=== PATIENT | male | born 1960 | race African-American/Black ===

== ENCOUNTER 2017-07-05 11:22 | Emergency (ER) | payer MEDICAID ==
[~2017-07-05] VITALS: Ht 180.3 cm; Wt 83.5 kg
[~2017-07-05 11:22] MED LIST: ATEN50TA
[2017-07-05 11:43] LABS: Urine RBC None Seen /hpf (0 - 3)
[2017-07-05 12:22] LABS: Urine Color Yellow (Yellow); Urine Glucose Normal (Normal)
[2017-07-05 12:23] LABS: Urine Bilirubin Negative (Negative); Urine Blood Negative /uL (Negative); Urine Ketone Negative (Negative); Urine Nitrite Negative (Negative); Urine Urobilinogen Normal (Negative)
[2017-07-05 12:23] LABS: Basophils # (auto) 0.1 uL; Basophils % (auto) 0.6 % (0.0-2.0); Eosinophils # (auto) 0.3 uL; Eosinophils % (auto) 3.3 % (0.0-7.0); Hematocrit 39.6 % (41.0-53.0); Hemoglobin 13.6 g/dL (13.5-17.5); Lymphocytes # (auto) 1.6 uL; Lymphocytes % (auto) 18.6 % (10.0-50.0); Mean Corpuscular Hemoglobin 33.3 pg (28.0-32.0); Mean Corpuscular Hgb Conc. 34.2 g/dL (32.0-36.0); Mean Corpuscular Volume 97.3 fL (80.0-100.0); Mean Platelet Volume 8.3 fL (6.9-10.8); Monocytes # (auto) 0.8 uL; Monocytes % (auto) 9.5 % (0.0-12.0); Neutrophils # (auto) 5.9 uL; Nucleated Red Blood Cells % 0.1 %; Platelet Count (auto) 347 10^3/uL (140-450); Red Cell Distribution Width 13.6 % (11.8-14.3); White Blood Cell 8.7 10^3/uL (4.4-10.8)
[2017-07-05 12:24] LABS: Urine Squamous Epithelial Cell FEW /hpf (<5)
[2017-07-05 12:25] LABS: Urine Mucus FEW (None Seen)
[2017-07-05 12:37] LABS: INR 0.93 (0.9-1.15); Partial Thromboplastin Time 25.3 sec (22.64-33.71); Prothrombin Time 10.1 sec (9.37-12.3)
[2017-07-05 12:43] LABS: Albumin 3.4 g/dL (3.4-5.0); Alkaline Phosphatase 79 U/L (45-117); Anion Gap 8 (5-15); Aspartate Aminotransferase 18 U/L (15-37); Bilirubin, Total 0.4 mg/dL (0.2-1.0); Blood Urea Nitrogen 14 mg/dL (7-18); Calcium 8.3 mg/dL (8.5-10.1); Carbon Dioxide 22 mmol/L (21-32); Chloride 111 mmol/L (98-107); GFR African American 82 mL/min; GFR Non-African American 68 mL/min; Glucose 104 mg/dL (74-106); Magnesium 2.2 mg/dL (1.6-2.6); Potassium 4.1 mmol/L (3.5-5.1); Sodium 141 mmol/L (136-145); Total Protein 6.9 g/dL (6.4-8.2)
[2017-07-05 12:50] LABS: B-Type Natriuretic Peptide 31.91 pg/mL (0-100)
[2017-07-05 15:42] VITALS: BP 173/98
== END 2017-07-05 15:44 | disposition home or self-care (01) ==
LOC: ER 11:22
DX: R42 Dizziness and giddiness (principal); I10 Essential (primary) hypertension; F17.210 Nicotine dependence, cigarettes, uncomplicated; Z79.899 Other long term (current) drug therapy
CPT/HCPCS: 36415; 70450; 71020; 80053; 81001; 82962; 83735; 83880; 84484; 85025; 85610; 85730; 93005

== ENCOUNTER 2021-04-17 10:25 | Emergency (ER) | payer MEDICAID ==
[~2021-04-17] VITALS: Ht 180.3 cm; Wt 81.6 kg
[2021-04-17 11:02] VITALS: BP 155/111
== END 2021-04-17 12:12 | disposition home or self-care (01) ==
LOC: ER 10:25
DX: H61.22 Impacted cerumen, left ear (principal); I10 Essential (primary) hypertension; I25.2 Old myocardial infarction; F17.210 Nicotine dependence, cigarettes, uncomplicated; Z98.890 Other specified postprocedural states
CPT/HCPCS: 69209

== ENCOUNTER 2021-08-19 08:28 | Emergency (ER) | payer MEDICAID ==
[~2021-08-19] VITALS: Ht 180.3 cm; Wt 86.2 kg
[2021-08-19 08:34] VITALS: BP 227/139
[2021-08-19] MEDS ORDERED: cloNIDine HCL 0.1 MG TAB PO ONE (08:45)
[2021-08-19] MEDS ORDERED: LIDOCAINE VISCOUS 2% 15ML UD PO ONE (09:00)
[2021-08-19] MEDS ORDERED: LIDO2SOL23 PO (10:05)
[2021-08-19] MEDS ORDERED: CLIN300C8 PO (10:05)
== END 2021-08-19 10:05 | disposition left against medical advice (07) ==
LOC: ER 08:28
DX: S01.532A Puncture wound without foreign body of oral cavity, initial encounter (principal); I10 Essential (primary) hypertension; X58.XXXA Exposure to other specified factors, initial encounter; Y93.89 Activity, other specified; Y92.89 Other specified places as the place of occurrence of the external cause; Y99.8 Other external cause status